=== PATIENT | female | born 1990 ===

== ENCOUNTER 2018-09-22 14:35 | Observation (INO) | payer SELFPAY ==
[2018-09-22] MEDS ORDERED: NITROFURANTOIN MACROBID 100 MG CAP PO SCH (21:00)
== END 2018-09-22 17:15 | disposition home or self-care (01) ==
LOC: FLD 14:35
PROVIDERS: ADMIT Obstetrics & Gynecology; ATTEND Obstetrics & Gynecology
DX: Z03.79 Encounter for other suspected maternal and fetal conditions ruled out (principal); Z3A.22 22 weeks gestation of pregnancy